=== PATIENT | female | born 1975 | race African-American/Black ===

== ENCOUNTER 2016-10-21 15:25 | Emergency (ER) | payer MEDICAID ==
[~2016-10-21] VITALS: Ht 167.6 cm; Wt 83.9 kg
[~2016-10-21 15:25] MED LIST: ASCO250T6 PO
[2016-10-21 16:00] VITALS: BP 161/88
[2016-10-21] MEDS ORDERED: LIDOCAINE HCL/PF 1% 30 ML SDV ONE (16:31)
== END 2016-10-21 17:09 | disposition home or self-care (01) ==
LOC: ER 15:26
DX: S61.011A Laceration without foreign body of right thumb without damage to nail, initial encounter (principal); W26.8XXA Contact with other sharp object(s), not elsewhere classified, initial encounter; Y93.89 Activity, other specified; Y92.89 Other specified places as the place of occurrence of the external cause; Y99.9 Unspecified external cause status
CPT/HCPCS: A4606; J3490; Z7610

== ENCOUNTER 2023-08-25 23:41 | Emergency (ER) | payer MEDICAID, OTHER ==
[~2023-08-25] VITALS: Ht 170.2 cm; Wt 104.3 kg
[~2023-08-25 23:41] MED LIST changes: +ASCO250T23 PO; -ASCO250T6 PO
[2023-08-26 00:47] VITALS: TEMP 98.3
[2023-08-26 03:28] VITALS: BP 129/84; O2SAT 97
== END 2023-08-26 03:43 | disposition home or self-care (01) ==
LOC: ER 23:44
DX: S80.02XA Contusion of left knee, initial encounter (principal); S30.0XXA Contusion of lower back and pelvis, initial encounter; Z60.2 Problems related to living alone; W07.XXXA Fall from chair, initial encounter; Y93.89 Activity, other specified; Y92.098 Other place in other non-institutional residence as the place of occurrence of the external cause; Y99.8 Other external cause status
CPT/HCPCS: 72220-TC; 73564-TC